=== PATIENT | female | born 1970 | race Native Hawaiian/Other Pacific Islander ===

== ENCOUNTER 2018-05-12 10:15 | Emergency (ER) | payer MEDICAID ==
[2018-05-12 10:27] VITALS: RESP 18; O2SAT 99
--- NOTE | 2018-05-12 12:48 | ED PDOC ---
HPI: Influenza Time Seen by Provider: 05/12/18 10:40 Chief Complaint: Flu-like Symptoms Chief Complaint (Provider): flu-like symptoms History Per: Patient Have you had recent travel within the past 21 days to any of: No Sick Contacts (Context): Family Member(s) ( with likely flu 1 week ago) Hx Influenza Vaccination: Yes Additional complaint(s):: 47 y/o F with no significant PMH who presents with fever x 2 days and cough with some nasal congestion. Patient has had fever up to 102 for the past 2 days, + body aches. Denies sore throat, C/P, N/V, diarrhea. had flu-like symptoms for one week that resolved one week ago. Past Medical History Reviewed: Historical Data, Nursing Documentation, Vital Signs Vital Signs: Last Vital Signs Temp 100.4 F H 05/12/18 11:59 Pulse 96 H 05/12/18 10:26 Resp 18 05/12/18 10:26 BP 123/84 05/12/18 10:26 Pulse Ox 99 05/12/18 10:26 - Medical History PMH: No Chronic Diseases Denies: Chronic Kidney Disease - Family History Family History: States: Unknown Family Hx - Social History Current smoker - smoking cessation education provided: No Ex-Smoker (has not smoked in the last 12 months): No Alcohol: None Drugs: Denies - Home Medications Home Medications: Ambulatory Orders Medication Instructions Recorded Oseltamivir Phosphate [Tamiflu] 75 mg PO BID 5 Days capsule 05/12/18 - Allergies Allergies/Adverse Reactions: Allergies Allergy/AdvReac Type Severity Reaction Status Date / Time No Known Allergies Allergy Verified 05/12/18 11:24 Review of Systems Constitutional: Positive for: Fever, Chills, Sweats Cardiovascular: Negative for: Chest Pain Respiratory: Positive for: Cough. Negative for: Shortness of Breath Gastrointestinal: Negative for: Nausea, Vomiting Physical Exam - Reviewed Nursing Documentation Reviewed: Yes Vital Signs Reviewed: Yes - Physical Exam Appears: Positive for: Uncomfortable Head Exam: Positive for: ATRAUMATIC Skin: Positive for: Normal Color Eye Exam: Positive for: Conjunctival injection (mild B/L) ENT: Positive for: Normal ENT Inspection Neck: Positive for: Normal Cardiovascular/Chest: Positive for: Regular Rate, Rhythm Respiratory: Positive for: Normal Breath Sounds Gastrointestinal/Abdominal: Positive for: Normal Exam Neurologic/Psych: Positive for: Alert, Oriented Medical Decision Making Medical Decision Making: Tamiflu 75mg PO x 1 Tylenol 975mg PO x 1 Re-evaluation - ECG O2 Sat by Pulse Oximetry: 99 Disposition - Clinical Impression Clinical Impression: Influenza - Patient ED Disposition Is Patient to be Admitted: No Counseled Patient/Family Regarding: Studies Performed, Diagnosis - Disposition Referrals: Earl GILBERT,Shubham Charles [Family Provider] - Disposition: Routine/Home Disposition Time: 14:26 Condition: STABLE Additional Instructions: Take Tylenol and Ibuprofen for fevers and body aches. Take Tamiflu to help reduce your symptoms. You should avoid close contact with others as you are very contagious. Return to ER if you start having trouble breathing. Prescriptions: Oseltamivir Phosphate [Tamiflu] 75 mg PO BID 5 Days capsule Instructions: Flu, Adult (DC) Forms: [facility] ([place]ic), [facility] ED School/Work Excuse Print Language: BELIZEAN
[2018-05-12 14:44] VITALS: BP 113/65; PULSE 85; TEMP 99.1
== END 2018-05-12 14:38 | disposition home or self-care (01) ==
LOC: H.ER 10:15
DX: J11.1 Influenza due to unidentified influenza virus with other respiratory manifestations (principal)